=== PATIENT | female | born 1985 | race African-American/Black ===

== ENCOUNTER 2023-03-15 10:45 | Emergency (ER) | payer MEDICAID, OTHER ==
[~2023-03-15] VITALS: Ht 165.1 cm; Wt 61.0 kg
[2023-03-15 10:52] VITALS: BP 125/65; PULSE 85; RESP 16; TEMP 100.5; O2SAT 100
[2023-03-15] MEDS ORDERED: ACETAMINOPHEN 325MG TABLET PO ONE (11:15)
[2023-03-15 12:23] LABS: CLARITY URINE CLEAR (CLEAR); COLOR URINE YELLOW (YELLOW); GLUCOSE URINE NEGATIVE (NEGATIVE); KETONES URINE 3+ (NEGATIVE); LEUKOCYTE ESTERASE URINE 2+ (NEGATIVE); NITRITE URINE NEGATIVE (NEGATIVE); OCCULT BLOOD URINE TRACE (NEGATIVE); PH URINE 6.5 (4.5-8.0); PROTEIN URINE TRACE (NEGATIVE); SPECIFIC GRAVITY URINE 1.033 (1.005-1.030)
[2023-03-15 12:26] LABS: SQUAMOUS EPITHELIAL CELL URINE 2+ /lpf (RARE/1+); YEAST URINE NONE SEEN
[2023-03-15 12:37] LABS: MUCUS URINE 1+ /lpf (< = 2+)
[2023-03-15 12:41] LABS: BACTERIA URINE 2+
[2023-03-15] MEDS ORDERED: METR-167 MT (15:11)
[2023-03-15] MEDS ORDERED: FLUC150T46 MT (15:34)
== END 2023-03-15 15:44 | disposition home or self-care (01) ==
LOC: ER 11:14
DX: N76.0 Acute vaginitis (principal); J06.9 Acute upper respiratory infection, unspecified; Z20.822 Contact with and (suspected) exposure to COVID-19
CPT/HCPCS: 99284; 87426; 81003; 81025; 87210; 87804 ×2; C9803